=== PATIENT | male | born 1930 | race Caucasian/White ===

== ENCOUNTER → 2018-09-04 | Outpatient (CLI) | payer OTHER | LOC: HYPER 07:07 | DX: E11.621 Type 2 diabetes mellitus with foot ulcer (principal); I70.245 Atherosclerosis of native arteries of left leg with ulceration of other part of foot; L97.522 Non-pressure chronic ulcer of other part of left foot with fat layer exposed; L84 Corns and callosities; E11.51 Type 2 diabetes mellitus with diabetic peripheral angiopathy without gangrene; E11.36 Type 2 diabetes mellitus with diabetic cataract; E11.65 Type 2 diabetes mellitus with hyperglycemia; E03.9 Hypothyroidism, unspecified; G90.522 Complex regional pain syndrome I of left lower limb; I87.2 Venous insufficiency (chronic) (peripheral); I10 Essential (primary) hypertension; I25.10 Atherosclerotic heart disease of native coronary artery without angina pectoris; L30.9 Dermatitis, unspecified; J41.8 Mixed simple and mucopurulent chronic bronchitis; M10.00 Idiopathic gout, unspecified site; M15.9 Polyosteoarthritis, unspecified; Z86.73 Personal history of transient ischemic attack (TIA), and cerebral infarction without residual deficits; Z79.01 Long term (current) use of anticoagulants; Z79.4 Long term (current) use of insulin; Z87.891 Personal history of nicotine dependence; Z98.49 Cataract extraction status, unspecified eye ==

== ENCOUNTER → 2018-09-11 | Outpatient (CLI) | payer OTHER | LOC: HYPER 07:08 | DX: E11.621 Type 2 diabetes mellitus with foot ulcer (principal); I70.245 Atherosclerosis of native arteries of left leg with ulceration of other part of foot; L97.522 Non-pressure chronic ulcer of other part of left foot with fat layer exposed; L84 Corns and callosities; L30.9 Dermatitis, unspecified; E11.51 Type 2 diabetes mellitus with diabetic peripheral angiopathy without gangrene; E11.36 Type 2 diabetes mellitus with diabetic cataract; E11.65 Type 2 diabetes mellitus with hyperglycemia; G90.522 Complex regional pain syndrome I of left lower limb; I10 Essential (primary) hypertension; I25.10 Atherosclerotic heart disease of native coronary artery without angina pectoris; J41.8 Mixed simple and mucopurulent chronic bronchitis; M10.00 Idiopathic gout, unspecified site; M15.9 Polyosteoarthritis, unspecified; Z79.01 Long term (current) use of anticoagulants; Z79.4 Long term (current) use of insulin; Z86.73 Personal history of transient ischemic attack (TIA), and cerebral infarction without residual deficits; Z87.891 Personal history of nicotine dependence ==

== ENCOUNTER → 2018-09-14 | Outpatient (CLI) | payer OTHER | LOC: MRI 13:08 | DX: S92.514A Nondisplaced fracture of proximal phalanx of right lesser toe(s), initial encounter for closed fracture (principal); M86.8X7 Other osteomyelitis, ankle and foot; X58.XXXA Exposure to other specified factors, initial encounter; Y93.89 Activity, other specified; Y92.89 Other specified places as the place of occurrence of the external cause; Y99.8 Other external cause status ==

== ENCOUNTER → 2018-09-19 | Outpatient (CLI) | payer OTHER | LOC: HYPER | DX: E11.621 Type 2 diabetes mellitus with foot ulcer (principal); I70.245 Atherosclerosis of native arteries of left leg with ulceration of other part of foot; L97.522 Non-pressure chronic ulcer of other part of left foot with fat layer exposed; E11.51 Type 2 diabetes mellitus with diabetic peripheral angiopathy without gangrene; E11.36 Type 2 diabetes mellitus with diabetic cataract; I10 Essential (primary) hypertension; I25.10 Atherosclerotic heart disease of native coronary artery without angina pectoris; M15.9 Polyosteoarthritis, unspecified; L30.9 Dermatitis, unspecified; G90.522 Complex regional pain syndrome I of left lower limb; L84 Corns and callosities; M10.00 Idiopathic gout, unspecified site; J41.8 Mixed simple and mucopurulent chronic bronchitis; Z86.73 Personal history of transient ischemic attack (TIA), and cerebral infarction without residual deficits; Z87.891 Personal history of nicotine dependence; Z79.01 Long term (current) use of anticoagulants; Z79.4 Long term (current) use of insulin ==

== ENCOUNTER 2018-09-25 05:33 | Inpatient (IN) | payer OTHER ==
[~2018-09-25] VITALS: Ht 182.9 cm; Wt 90.7 kg
--- NOTE | ~2018-09-25 | O ---
[facility] [place] [address] OPERATIVE REPORT Name: ILIANADAX Room #: 150-6 [facility] IN .R.#: [id number] Admission: 09/25/18 ������������������ Attend Phys: Nino Donald MD Discharge: ������������������ Date of : 32 Report #: [id number] THIS REPORT FOR: //name// CC: Calixto Donald DATE OF SERVICE: 09/25/2018 PREOPERATIVE DIAGNOSIS: Left foot osteomyelitis. POSTOPERATIVE DIAGNOSIS: Left foot osteomyelitis. PROCEDURE: 1. Left foot fifth ray amputation. 2. Left foot great toe distal phalanx amputation. 3. Left foot second toe distal phalanx amputation. SURGEON: Nino Donald M.D. GUARD DRIVER: Ruthie Baig. ANESTHESIA: General. ESTIMATED BLOOD LOSS: 5 mL. DRAINS: No drains. TOURNIQUET TIME: 45 minutes. DESCRIPTION OF PROCEDURE: The patient was brought to the operating room where he was placed under general anesthesia. Once under adequate general anesthesia, his left lower extremity was prepped and draped in sterile manner. The extremity was elevated and tourniquet placed at 250 mmHg. A racquet-shaped incision including the plantar lateral wound over the fifth metatarsal head was then made. This was extended proximally on the fifth metatarsal. Sharp dissection was taken down to the bone. The collateral ligaments around the metatarsophalangeal joint were released and the distal toe was removed. A sagittal saw was then used to transect the fifth metatarsal proximally and this was then subsequently excised. The wound was irrigated copiously and closed over a [place] drain with 2-0 nylon suture. We then proceeded to the second toe and a fishmouth type incision about the distal phalanx of the second toe was made. This was dissected down directly to the bone and then the joint was released with a 15 blade at the distal interphalangeal joint. The distal phalanx was then subsequently removed completely. The wound was irrigated copiously and the toe was closed with 3-0 [facility] [address] [place] [address] OPERATIVE REPORT Name: DAX BARRIENTOS Room #: 150-6 ADM IN .R.#: [id number] Admission: 09/25/18 ������������������ Attend Phys: Nino Donald MD Discharge: ������������������ Date of : 32 Report #: [id number] nylon suture in simple stitch manner. We then proceeded to the great toe and similarly, a fishmouth-type incision was made about the distal phalanx of the great toe at the distal interphalangeal joint. Sharp dissection was carried down to the joint, which was then released sharply with a 15 blade and the distal phalanx was then subsequently excised sharply and with a rongeur. Once complete, the wound was irrigated copiously and closed with 3-0 nylon suture in simple stitch manner. The wounds were then dressed with Xeroform, 4 x 4s, and a sterile soft compressive dressing was placed. Tourniquet was let down at approximately 45 minutes. The remainder of the toes were pink and warm with good capillary refill. There were no complications from the procedure. The patient tolerated the procedure well and went to the recovery room without incident. ��������������������������������������������� ���������������������������������������� By: ��������������������������������������������� 1329 1341 Nino Donald MD /nt
[2018-09-25 11:03] LABS: HEMATOCRIT 40.9 % (42.0-52.0); HEMOGLOBIN 14.4 gm/dL (14.0-18.0); MCH 33.9 pg (26.0-34.0); MCHC 35.2 g/dL (28.0-37.0); MCV 96.4 fL (80.0-100.0); RBC 4.24 mil/uL (4.50-6.00); RDW 13.2 % (10.5-14.5); WBC 8.4 thou/uL (4.0-11.0)
[2018-09-25 11:13] LABS: CALCIUM 9.5 mg/dL (8.5-10.1); CREATININE 1.1 mg/dL (0.7-1.3); POTASSIUM 4.6 mmol/L (3.5-5.1)
[2018-09-25 12:00] VITALS: BP 139/57
[2018-09-25 17:00] VITALS: BP 111/50
--- NOTE | 2018-09-25 18:30 | NUR ---
PT RECEIVED AT 1630 PER BED FROM [facility] RM ALERT AND IN NO ACUTE DISTRESS. ASSESSMENT COMPLETED. VSS. FOOT DRESSING DRY AND INTACT. LT LEG ELEVATED ON PILLOW W/ ICE PACK. PAIN CONTROLLED.
[2018-09-25 20:00] VITALS: BP 136/56
[2018-09-25] MEDS ORDERED: HUMALOG100 UNIT/1 SUBQ (20:18)
[2018-09-25] MEDS ORDERED: PROSCAR 5MG TABL5 MG PO (20:19)
[2018-09-25] MEDS ORDERED: FLOMAX0.4 MG PO (20:20)
[2018-09-25] MEDS ORDERED: COZAAR 50 MG TA50 M1 PO (20:22)
[2018-09-25] MEDS ORDERED: LASIX 40 MG TAB40 M2 PO (20:24)
[2018-09-25] MEDS ORDERED: PLAVIX 75 MG TA75 M1 PO (20:25)
[2018-09-25] MEDS ORDERED: ZOCOR20 MG PO (20:25)
[2018-09-25] MEDS ORDERED: CLARITIN10 MG PO (20:26)
[2018-09-26 00:15] VITALS: BP 128/57
[2018-09-26 04:30] VITALS: BP 149/50
--- NOTE | 2018-09-26 04:35 | NUR ---
Assumed care of pt at 1900. Pt a&ox4. Dressing on left foot dry and intact. IVF infusing. Post-op shoe in room. Prn pain meds administered. Fall precautions in place. Will continue to monitor.
[2018-09-26] MEDS ORDERED: TOUJEO MAX300 UNIT/1 SUBQ (05:05)
[2018-09-26] MEDS ORDERED: HUMALOG100 UNIT/1 SUBQ (05:06)
[2018-09-26 05:57] LABS: HEMATOCRIT 38.1 % (42.0-52.0); HEMOGLOBIN 13.5 gm/dL (14.0-18.0)
[2018-09-26 06:22] LABS: POTASSIUM 4.3 mmol/L (3.5-5.1)
--- NOTE | 2018-09-26 07:22 | NUR ---
Pt able to void only 200mL. Bladder scanned. 600 mL urine in bladder. Timers Inspector on duty notified. Am flomax given early per order.
[2018-09-26 08:04] VITALS: BP 134/48
--- NOTE | 2018-09-26 09:45 | NUR ---
ASSESMENT COMPLETED. VSS. A/O. PHANTOM PAIN- MEDS GIVEN ORDERED. NO NOTED SOA. NO NV. PT RESTING IN BED. NO CONCERNS AT THIS TIME. AT BEDSIDE. WILL CONT. TO MONITOR.
--- NOTE | 2018-09-26 12:28 | NUR ---
ASSESSMENT-PT LIVES AT HOME WITH HIS . 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 PT DRIVES. HE WALKS ON HIS OWN AND DOES HIS OWN ADLS. THEY DO ALL OF THEIR OWN HOUSEHOLD THINGS. PT USES NO DME AND HAS NOT HAD ANY HH SERVICES. FOLLOWING TO ASSIST WITH DC PLANNING. ABLE TO ASSIST AT HOME.
[2018-09-26 17:14] VITALS: BP 119/41
[2018-09-26 18:51] VITALS: BP 116/54
--- NOTE | 2018-09-27 04:59 | NUR ---
PATIENT ALERT AND ORIENTED X4. DENIES PAIN. DRESSING ON L FOOT D/I. ACCUCHECK WAS 257 LAST NIGHT, RECIEVED 6 UNITS OF SS LISPRO INSULIN. IV LW PATENT. SLEPT MOST OF NIGHT.
[2018-09-27 09:11] VITALS: BP 159/54
--- NOTE | 2018-09-27 09:15 | NUR ---
ASSUMED PT CARE AT 0700. ASSESSMENT COMPLETED AND IS CHARTED. VSS. PT AWAKE,ALERT/ORIENTED X4. REPORTS PAIN TO LEFT FOOT 3/10 WHICH HE STATES IS TOLERABLE AND DENIES NEED FOR PAIN MEDICATION. DRESSING TO LEFT FOOT IS CDI. PT ABLE TO MOVE TOES AND DENIES NUMBNESS/TINGLING. SOME EDEMA AND REDNESS NOTED TO LEFT LEG. MOIST COUGH NOTED. PT REPORTS HE ALWAYS COUGHS UP PHLEGM IN THE MORNING. PT REPORTS NO BM SINCE BEFORE SURGERY. WILL REQUEST SOMETHING TO HELP. WILL CONTINUE WITH CURRENT CARE.
--- NOTE | 2018-09-27 10:06 | NUR ---
VALENTE reviewed chart and spoke with nursing and attending physician. Pt was transferred to [facility] from and is progressing towards goals for discharge. Pt is s/p toe amputation and currently on IV abx. Awaiting culture results. Per ID, pt will most likely need IV abx at time of discharge. VALENTE met with pt at bedside to discuss home IV abx. VALENTE explained that insurance coverage will need to be checked to determine home abx benefits. Pt would prefer to do IV infusion at home. SW provided options for Infusion companies. No preference voiced. VALENTE faxed referral to [facility] and notified liaison. Will check insurance coverage. Pt will need a line placed prior to discharge. VALENTE is following to assist as needed with discharge planning.
--- NOTE | 2018-09-27 12:53 | HC ---
[facility] [place] [address] CONSULTATION Name: DAX BARRIENTOS Nancy Room #: 220-P [facility] IN M.R.#: [id number] Admission: 09/25/18 ������������������ Attend Phys: Nino Donald MD Discharge: ������������������ Date of : 32 Report #: [id number] THIS REPORT FOR: //name// CC: Calixto Donald DATE OF SERVICE: 09/26/2018 INFECTIOUS DISEASE CONSULTATION: REASON FOR CONSULTATION: I was asked to evaluate concerning the left distal foot osteomyelitis. HISTORY OF PRESENT ILLNESS: The patient was an 88-year-old with diabetes, peripheral vascular disease. He developed ulceration last month over the left lateral plantar foot along with first two toes distally. He was found to have peripheral vascular changes and underwent balloon angioplasty. Unclear if he had a stent placed. Wounds did not heal and he was brought in yesterday where he underwent left fifth ray amputation along with distal first and second toe amputation. No operative complications were noted. Postoperatively, he has done well, although he has had some confusion while on his narcotics. No fever, chills or sweats. No nausea, vomiting or diarrhea. No dysuria or frequency. He has been constipated. Blood glucose levels have been in the 200s. REVIEW OF SYSTEMS: Ten-point review was negative other than what is described above. ALLERGIES: ASPIRIN, NAPROSYN. MEDICATIONS: As noted on his MAR including cefazolin. PAST MEDICAL HISTORY: Diabetes, hypertension, hyperlipidemia, peripheral vascular disease, TIA. FAMILY HISTORY: Noncontributory. SOCIAL HISTORY: He is a smoker of cigarettes. No significant alcohol intake. PHYSICAL EXAMINATION: VITAL SIGNS: He is afebrile and hemodynamically stable. GENERAL: He is alert and cooperative and pleasant and out of bed, sitting up in his chair with his feet elevated. EYES: Without scleral icterus. MOUTH: Without mucositis. NECK: Supple, with no thyromegaly or mass. LUNGS: Clear. [facility] [address] [place] [address] CONSULTATION Name: DAX BARRIENTOS Nancy Room #: 220-P [facility] IN [facility].#: [id number] Admission: 09/25/18 ������������������ Attend Phys: Nino Donald MD Discharge: ������������������ Date of : 32 Report #: [id number] HEART: Regular, without murmur, gallop or rub. ABDOMEN: Soft and nontender with no hepatosplenomegaly or mass. SKIN: Without rash or decubitus. No palpable adenopathy. EXTREMITIES: With no clubbing, cyanosis or edema. Left lower extremity in surgical wrap. No drainage on the dressing. 1+ edema below the knee bilaterally. Pulses were palpable in the femoral and posterior tibial bilaterally. Sensation was diminished in the toes on the right. Could not assess the left. Strength in his upper and lower extremities was equal and within normal limits. Cranial nerves intact. Mood normal. LABORATORY STUDIES: Hemoglobin 14.4, white count 8.4, platelet count 264,000. Creatinine 1.1. Cultures from his foot yesterday are pending. Blood cultures are pending. IMPRESSION: 1. An 89-year-old with diabetic foot infection on the left. Underlying peripheral vascular disease. I do not have any organisms to go off of. The patient failed outpatient therapy. Postoperative day #1, ray amputation #5, distal toe amputation #1 and #2. 2. Diabetes. 3. Peripheral vascular disease. RECOMMENDATIONS: We will continue IV antibiotic therapy with Unasyn, pending final culture results. We will likely need prolonged IV antibiotic therapy post-discharge. We will obtain sedimentation rate, CRP and follow laboratory studies as well as wound healing. ��������������������������������������������� <ELECTRONICALLY SIGNED> ���������������������������������������� By: Fernando Ramesh MD ��������������������������������������������� 09/27/18 1253 1459 0150 Fernando Ramesh MD /nt
--- NOTE | 2018-09-27 14:23 | NUR ---
PT PROGRESSING WELL THIS SHIFT. WORKED WITH PT AND TOLERATED WELL. UP IN CHAIR AT THIS TIME. DENIES NEED FOR PAIN MEDICATION, STATES PAIN IS TOLERABLE. DRESSING TO LEFT FOOT CHANGED BY PA. CONSENT OBTAINED FOR PICC PLACEMENT.
[2018-09-27 19:00] VITALS: BP 116/59
--- NOTE | 2018-09-28 05:28 | NUR ---
PATIENT ALERT AND ORIENTED X4. DENIES PAIN. ACCUCHECK 72, SNACK GIVEN. SLEPT MOST OF NIGHT.
[2018-09-28 08:38] VITALS: BP 167/72
--- NOTE | 2018-09-28 08:40 | NUR ---
ASSUMED PT CARE AT 0700. ASSESSMENT COMPLETED AND IS CHARTED. VSS. PT IS AWAKE, ALERT/ORIENTED X4. DENIES PAIN AT THIS TIME. DRESSING TO RIGHT FOOT IS CDI. NO DRAINAGE PRESENT. PT TO RECEIVE PICC LINE TODAY FOR HOME ANTIBIOTICS. NO OTHER CONCERNS OR COMPLAINTS AT THIS TIME. WILL CONTINUE WITH CURRENT CARE.
--- NOTE | 2018-09-28 11:08 | PATH ---
[facility] [address] [place] [address] PATHOLOGY RPT PROCEDURE Name: DAX BARRIENTOS Room #: 220-P ADM IN M.R.#: [id number] ������������������ Admission: 09/25/18 ������������������ Date of : 32 Discharge: Report #: [id number] Path Case #: [id number] [facility] Accession Number: [id number] . 01 Material submitted: . LEFT FOOT FIFTH RAY, 1ST AND 2ND DISTAL PHALANX . 01 Clinical history: . Left foot osteomyelitis . 02 Diagnosis: Fifth ray, first and second distal phalanx, left foot, amputation: - Three partially amputated digits. - Acute and chronic inflammation extending into bone associated with fibrosis and necrosis, consistent with the provided history of osteomyelitis. - Ulceration associated with marked acute inflammation extending into underlying subcutaneous tissue and bone. - Separately received larger segment of bone showing focal acute and chronic inflammation as well as necrosis of the bone, compatible with osteomyelitis. - Margins of bone on toes (inked margins) showing viable bone. (IUV/db; 09/27/2018) LBQ/09/27/2018 . 02 Electronically signed: . Deisy Vick MD, Pathologist NPI- [id number] . 01 Gross description: . The specimen is received in formalin, labeled "Dax Barrientos, left foot fifth ray and left first and second distal phalanx". Received are three partial amputated digits ranging in size from 1.7 x 1.5 x 1.4 to 3.5 x 2.8 x 2.2 cm in greatest dimensions. The bone margins of all three toes are smooth and convex in appearance, consistent with disarticulation. The bone and soft tissue margins are inked black, blue, and yellow, respectively. The plantar aspects of the smallest and the largest segment are missing the epidermal surface. The nail is present and thickened on the smallest segment. Adjacent to the nail, there is a well-circumscribed, flat and light healy lesion measuring 0.5 x 0.5 cm, which grossly approaches the inked margin. On the second segment, the nail is present displaying a pale healy and grossly unremarkable appearance. The epidermal surface is pink-healy to pale healy and slightly wrinkled in appearance with no grossly distinct lesions. On the largest segment, the nail is present displaying a light healy and thickened appearance. Adjacent to the nail bed, there is a poorly circumscribed, irregular in contour and light healy lesion measuring 1.5 x 1.0 cm, which is 0.8 cm from the closest skin margin. [address] [address] PATHOLOGY RPT PROCEDURE Name: DAX BARRIENTOS Room #: 220-P ADM IN M.R.#: [id number] ������������������ Admission: 09/25/18 ������������������ Date of : 32 Discharge: Report #: [id number] Path Case #: [id number] . Also received within the specimen container are two additional segments of bone. The smaller segment displays one smooth, convex and one smooth, concave margin, consistent with disarticulation. The concave margin is inked red. The larger segment displays one smooth, convex margin, consistent with disarticulation, and one blunt margin, consistent with transection. The transected margin is inked orange. Attached to the larger segment of bone, there is an irregular excision of skin measuring 3.8 x 1.5 x 1.4 cm displaying a lesion which is well-circumscribed, irregular in contour and light healy measuring 1.8 x 1.7 cm. The specimen is submitted representatively as follows: . A1 full-thickness longitudinal cross-section of smallest segment and lesion adjacent to nail bed, following decalcification A2 full-thickness longitudinal cross-section of second segment, following decalcification A3-A4 full-thickness longitudinal cross-section of larger segment, submitted from proximal to distal aspects, following decalcification A5 loss control representative section of lesion adjacent to nail bed on largest segment A6 full-thickness longitudinal cross-section of smallest segment of separately submitted bone, following decalcification A7-A8 full-thickness longitudinal cross-section of larger segment of separately submitted bone, submitted from transected to disarticulated aspects, following decalcification A9 loss control representative sections of skin attached to larger segment of separately submitted bone. (CAA; 09/26/2018) QAC/QAC . 02 Pathologist provided ICD-10: M86.8X7, L97.529 . 02 CPT . 145500, 625690 Specimen Comment: A courtesy copy of this report has been sent to Specimen Comment: [phone], . Specimen Comment: Report sent to / DR FIGUEROA Specimen Comment: A duplicate report has been generated due to demographic updates. Performed at: [address] [place] [address] [address], [place], [place] [id number] MD Sanchez Salas MD Phone: [phone] Performed at: [address] [id number] MD Deisy Vick MD Phone: [phone]
--- NOTE | 2018-09-28 11:43 | NUR ---
NOTIFIED TO PLACE A PICC FOR A PATIENT DISCHARGING WITH HOME IV ANTIBIOTICS. ORDER AND CONSENT NOTED. THE PROCEDURE WELL BENIFITS AND RISKS OF DVT AND INFECTION WERE DISCUSSED. THE LEFT UPPER ARM BASILIC WAS WIDLEY PATENT. A #4F SINGLE LUMEN POWER PICC WAS PLACED PER HOSPITAL POLICY AFTER A BEDSIDE TIMEOUT WAS COMPLETE. PICC TRIMMED TO 45CM AND ADVANCED WITHOUT DIFFICULTY. A STAT CHEST XRAY WAS ORDERED FOR CONFIRMATION.
--- NOTE | 2018-09-28 12:23 | NUR ---
DISCHARGE NOTE: VALENTE reviewed chart and spoke with nursing and hospitalist. Pt is medically stable for discharge home today with Home IV abx and HH. Pt is s/p toe amputation. VALENTE spoke with ID physician to request dose of zosyn prior to discharge. VALENTE met with pt and spouse at bedside to discuss discharge plan. VALENTE explained that [facility] liaison will be by to discuss copay and provide education. Pt's copay is $175.23 for one week. Pt to have HH services through [facility] (arranged by [facility]). [facility] liaison will provide pt's dose of Zosyn with pt and his . Pt did have PICC line placed earlier today. Contact info for [facility] and [facility] placed in pt's discharge summary. VALENTE is following to assist as needed with discharge planning.
[2018-09-28 12:29] VITALS: BP 167/72
[2018-09-28 13:51] VITALS: BP 167/72
--- NOTE | 2018-09-28 14:55 | NUR ---
DISCHARGE INSTRUCTIONS GIVEN TO PT AND . VERBALIZED UNDERSTANDING. DISMISSED PT IN STABLE CONDITION WITH PICC LINE IN PLACE TO HOME [facility]IA [facility].
== END 2018-09-28 15:16 | disposition home health service (06) | DRG 616 ==
LOC: TBA 05:33 → 4E 05:33 → PRE 16:21 → 4E 16:42 → PRE 16:44 → SICU 09-26 18:38 → ENTRNSPT 09-28 14:39 → EDTRNSPTSTS 09-28 14:46 → SICU 09-28 15:16
PROVIDERS: Anesthesiology; ADMIT Orthopaedic Surgery Foot and Ankle Surgery
DX: E11.69 Type 2 diabetes mellitus with other specified complication (principal); E43 Unspecified severe protein-calorie malnutrition; M86.8X7 Other osteomyelitis, ankle and foot; E11.51 Type 2 diabetes mellitus with diabetic peripheral angiopathy without gangrene; I10 Essential (primary) hypertension; E78.5 Hyperlipidemia, unspecified; R33.9 Retention of urine, unspecified; Z87.891 Personal history of nicotine dependence; Z88.6 Allergy status to analgesic agent; Z88.8 Allergy status to other drugs, medicaments and biological substances; Z79.899 Other long term (current) drug therapy
CPT/HCPCS: 10783; 15002; 27000; 50010; 50101; 50386; 50951; 56525; 56527; 57091; 62110; 62900; 70005

== ENCOUNTER → 2018-10-11 | Outpatient (CLI) | payer OTHER ==
[~2018-10-11] MED LIST: CLARITIN10 MG PO; COZAAR 50 MG TA50 M1 PO; FLOMAX0.4 MG PO; HUMALOG100 UNIT/1 SUBQ; LASIX 40 MG TAB40 M2 PO; PLAVIX 75 MG TA75 M1 PO; PROSCAR 5MG TABL5 MG PO; TOUJEO MAX300 UNIT/1 SUBQ; ZOCOR20 MG PO
== END ==
LOC: HYPER 10-03 10:25
DX: T81.89XD Other complications of procedures, not elsewhere classified, subsequent encounter (principal); E11.51 Type 2 diabetes mellitus with diabetic peripheral angiopathy without gangrene; E11.621 Type 2 diabetes mellitus with foot ulcer; I70.245 Atherosclerosis of native arteries of left leg with ulceration of other part of foot; L97.522 Non-pressure chronic ulcer of other part of left foot with fat layer exposed; E11.36 Type 2 diabetes mellitus with diabetic cataract; I10 Essential (primary) hypertension; I25.10 Atherosclerotic heart disease of native coronary artery without angina pectoris; M10.00 Idiopathic gout, unspecified site; M15.9 Polyosteoarthritis, unspecified; L30.9 Dermatitis, unspecified; G90.522 Complex regional pain syndrome I of left lower limb; R60.0 Localized edema; M10.9 Gout, unspecified; J41.8 Mixed simple and mucopurulent chronic bronchitis; Z87.891 Personal history of nicotine dependence; Z79.01 Long term (current) use of anticoagulants; Z79.4 Long term (current) use of insulin; Z86.73 Personal history of transient ischemic attack (TIA), and cerebral infarction without residual deficits; Y83.8 Other surgical procedures as the cause of abnormal reaction of the patient, or of later complication, without mention of misadventure at the time of the procedure

== ENCOUNTER → 2018-10-25 | Outpatient (CLI) | payer OTHER | LOC: HYPER 06:48 | DX: T81.89XD Other complications of procedures, not elsewhere classified, subsequent encounter (principal); E11.621 Type 2 diabetes mellitus with foot ulcer; I70.245 Atherosclerosis of native arteries of left leg with ulceration of other part of foot; L97.522 Non-pressure chronic ulcer of other part of left foot with fat layer exposed; E11.65 Type 2 diabetes mellitus with hyperglycemia; E11.51 Type 2 diabetes mellitus with diabetic peripheral angiopathy without gangrene; E11.36 Type 2 diabetes mellitus with diabetic cataract; R60.0 Localized edema; L30.9 Dermatitis, unspecified; G90.522 Complex regional pain syndrome I of left lower limb; I10 Essential (primary) hypertension; I25.10 Atherosclerotic heart disease of native coronary artery without angina pectoris; J41.8 Mixed simple and mucopurulent chronic bronchitis; M15.9 Polyosteoarthritis, unspecified; M10.00 Idiopathic gout, unspecified site; Z86.73 Personal history of transient ischemic attack (TIA), and cerebral infarction without residual deficits; Z87.891 Personal history of nicotine dependence; Z79.01 Long term (current) use of anticoagulants; Z79.4 Long term (current) use of insulin; Y83.8 Other surgical procedures as the cause of abnormal reaction of the patient, or of later complication, without mention of misadventure at the time of the procedure ==

== ENCOUNTER → 2018-11-15 | Outpatient (CLI) | payer OTHER | LOC: HYPER 06:44 | DX: T81.89XD Other complications of procedures, not elsewhere classified, subsequent encounter (principal); E11.621 Type 2 diabetes mellitus with foot ulcer; L97.522 Non-pressure chronic ulcer of other part of left foot with fat layer exposed; E11.51 Type 2 diabetes mellitus with diabetic peripheral angiopathy without gangrene; M10.00 Idiopathic gout, unspecified site; M15.9 Polyosteoarthritis, unspecified; L30.9 Dermatitis, unspecified; R60.0 Localized edema; E11.36 Type 2 diabetes mellitus with diabetic cataract; I25.10 Atherosclerotic heart disease of native coronary artery without angina pectoris; G90.522 Complex regional pain syndrome I of left lower limb; M10.9 Gout, unspecified; J41.8 Mixed simple and mucopurulent chronic bronchitis; Z86.73 Personal history of transient ischemic attack (TIA), and cerebral infarction without residual deficits; Z79.01 Long term (current) use of anticoagulants; Z79.4 Long term (current) use of insulin; Z87.891 Personal history of nicotine dependence; Y83.8 Other surgical procedures as the cause of abnormal reaction of the patient, or of later complication, without mention of misadventure at the time of the procedure ==

== ENCOUNTER → 2018-11-29 | Outpatient (CLI) | payer OTHER | LOC: HYPER 06:48 | DX: T81.89XD Other complications of procedures, not elsewhere classified, subsequent encounter (principal); E11.621 Type 2 diabetes mellitus with foot ulcer; I70.245 Atherosclerosis of native arteries of left leg with ulceration of other part of foot; L97.521 Non-pressure chronic ulcer of other part of left foot limited to breakdown of skin; E11.65 Type 2 diabetes mellitus with hyperglycemia; E11.51 Type 2 diabetes mellitus with diabetic peripheral angiopathy without gangrene; E11.36 Type 2 diabetes mellitus with diabetic cataract; L30.9 Dermatitis, unspecified; R60.0 Localized edema; G90.522 Complex regional pain syndrome I of left lower limb; I25.10 Atherosclerotic heart disease of native coronary artery without angina pectoris; J41.8 Mixed simple and mucopurulent chronic bronchitis; M15.9 Polyosteoarthritis, unspecified; M10.00 Idiopathic gout, unspecified site; M10.9 Gout, unspecified; Z87.891 Personal history of nicotine dependence; Z79.01 Long term (current) use of anticoagulants; Z79.4 Long term (current) use of insulin; Z86.73 Personal history of transient ischemic attack (TIA), and cerebral infarction without residual deficits; Y83.8 Other surgical procedures as the cause of abnormal reaction of the patient, or of later complication, without mention of misadventure at the time of the procedure ==